=== PATIENT | female | born 1955 | race Caucasian/White ===

== ENCOUNTER 2020-01-21 08:38 | Emergency (ER) | payer MEDICARE, OTHER ==
[~2020-01-21] VITALS: Ht 167.6 cm; Wt 111.1 kg
--- OUTSIDE RECORDS SUMMARY | 2020-01-21 08:40 | XMS REPORT | Continuity of Care Document ---
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 Active 12/27/2013 [facility] Peripheral Neuropathy Active 12/27/2013 [facility] Lower Back Pain Chronic Active 12/27/2013 [facility] Esophageal Reflux Active 12/27/2013 [facility] Medications Medication Details Route Status Patient Instructions Ordering Provider Order Date Source Vicodin 5-300 MG Oral Tablet ; Start Date: 12/11/2013 (Active) Active 12/11/2013 [facility] Cyclobenzaprine HCl 5 MG Oral Tablet ; Start Date: 12/11/2013; End Date: (Active) Active 12/11/2013 [facility] Diazepam 5 MG Oral Tablet ; St art Date: 12/11/2013 (Active) Active 12/11/2013 [facility] Atenolol 50 MG Oral Tablet ; S tart Date: 11/27/2013; End Date: 06/17/2014 (Active) Active 11/27/2013 [facility] Irbesartan-Hydrochlorothiazide 150-12.5 MG Oral Tablet ; Start Date: 09/29/2013; End Date: 02/17/2014 (Active) Active 09/29/2013 [facility] Accu-Chek FastClix Lancets Miscellaneous ; Start Date: 09/19/2013; End Date: (Active) Active 09/19/2013 [facility] Accu-Chezainab SmartView In Vitro Strip ; Start Date: 09/19/2013; End Date: (Active) Active 09/19/2013 [facility] Sissy Wagnerirma Lancets Fine Miscellaneous ; Start Date: 09/19/2013 (Active) Active 09/19/2013 [facility] Sissy Ultra Blue In Vitro Strip ; Start Date: 09/19/2013 (Active) Active 09/19/2013 [facility] AmLODIPine Besylate 10 MG Oral Tablet ; Start Date: 08/29/2013; End Date: 06/17/2014 (Active) Active 08/29/2013 [facility] BuPROPion HCl ER (XL) 300 MG Oral Tablet Extended Release 24 Hour ; Start Date: 08/29/2013 (Active) Active 08/29/2013 [facility] Glimepiride 1 MG Oral Tablet ; Start Date: 08/29/2013; End Date: 06/17/2014 (Active) Active 08/29/2013 [facility] BuPROPion HCl ER (XL) 300 MG Oral Tablet Extended Release 24 Hour ; Start Date: 08/29/2013; End Date: 05/30 (Active) Active 08/29/2013 [facility] Januvia 100 MG Oral Tablet ; S tart Date: 06/24/2013; End Date: 06/17/2014 (Active) Active 06/24/2013 [facility] Penicillin V Potassium 500 MG Oral Tablet ; Start Date: 05/19/2013; End Date: 05/29/2013 (Active) Active 05/19/2013 [facility] Atorvastatin Calcium 20 MG Oral Tablet ; Start Date: ; End Date: 06/17/2014 (Active) Active [facility] MetFORMIN HCl 500 MG Oral Tablet ; Start Date: ; End Date: 06/17/2014 (Active) Active [facility] Omeprazole 20 MG Oral Tablet Delayed Release ; Start Date: ; End Date: 06/17/2014 (Active) Active [facility] AmLODIPine Besylate 10 MG Oral Tablet (Active) Active [facility] Januvia 100 MG Oral Tablet (A ctive) Active [facility] Losartan Potassium-HCTZ 100-12.5 MG Oral Tablet (Active) Active [facility] Atenolol 50 MG Oral Tablet (A ctive) Active [facility] Lipitor 20 MG Oral Tablet (Ac tive) Active [facility] BuPROPion HCl ER (XL) 300 MG Oral Tablet Extended Release 24 Hour (Active) A ctive [facility] MetFORMIN HCl 500 MG Oral Tablet (Active) Active [facility] Omeprazole 20 MG Oral Tablet Delayed Release (Active) Active [facility] Atorvastatin Calcium 20 MG Oral Tablet (Active) Active [facility] Irbesartan-Hydrochlorothiazide 150-12.5 MG Oral Tablet (Active) Active [facility] Aspirin 81 MG Oral Tablet (Ac tive) Active [facility] Ibuprofen 200 MG Oral Tablet (Active) Active [facility] Allergies, Adverse Reactions, Alerts Substance Category Reaction Severity Reaction type Status Date Reported Comments Source Lexapro TABS drug allergy drug allergy Active [facility] Serzone TABS drug allergy drug allergy Active [facility] Immunizations No Data Provided for This Section Results No Data Provided for This Section Pathology Reports No Data Provided for This Section Diagnostic Reports No Data Provided for This Section Consultation Notes No Data Provided for This Section Discharge Summaries No Data Provided for This Section History and Physicals No Data Provided for This Section Vital Signs No Data Provided for This Section Encounters Location Location Details Encounter Type Encounter Number Reason For Visit Attending Provider ADM Date DC Date Status Source AUDIT [id number] 05/18/2013 05/18/2013 [facility] MILLIE Provi erich: DIMITRI LOJA, Status: Pen, Time: 12:45 PM [id number] 05/19/20 13 05/18/2013 [facility] AUDIT [id number] 05/19/2013 05/19/2013 [facility] AUDIT [id number] 06/24/2013 06/24/2013 [facility] AUDIT [id number] 08/29/2013 08/29/2013 [facility] ECL Provi erich: MONALISA BURGESS, Status: Pen, Time: 9:15 AM [id number] 08/31/19 14 08/29/2013 [facility] AUDIT [id number] 09/14/2013 09/14/2013 [facility] AUDIT [id number] 09/19/2013 09/19/2013 [facility] AUDIT [id number] 11/24/2013 11/24/2013 [facility] AUDIT [id number] 11/29/2013 11/29/2013 [facility] MILLIE Provi erich: MONALISA BURGESS, Status: Pen, Time: 8:00 AM [id number] 12/06/19 14 11/24/2013 [facility] MILLIE Provi erich: DIMITRI LOJA, Status: Pen, Time: 8:30 AM [id number] 12/20/19 14 11/29/2013 [facility] AUDIT [id number] 12/19/2013 12/19/2013 [facility] AUDIT [id number] 12/27/2013 12/27/2013 [facility] Procedures No Data Provided for This Section Assessment and Plan No Data Provided for This Section Plan of Care Plan of Care Date Source [QLH] TSH, 3RD GENERATION W/REFLEX TO FT 4 12/19/2013 Routine[QH] LIPID PANEL WITH REFLEX TO DIRECT LDL 12/19/2013 Routine[Q] COMPREHENSIVE METABOLIC PANEL W/eGFR (REFL) 12/19/2013 Routine[QLH] CBC (INCLUDES DIFF/PLT) 12/19/2013 Routine[QLH] MICROALBUMIN, RANDOM URINE (W/CREATININE) 12/19/2013 Routine[QLH] URINALYSIS, COMPLETE 12/19/2013 Routine 12/19/2013 [facility] Social History Social History Date Source Marital History - (Acti ve) Former Smoker (V15.82); (Active) Never Drank Alcohol (Active) 12/27/2013 [facility] Family History Value Date S ource Maternal history of Osteoporosis (V17.81 ); (Active) Paternal history of Pancreatic Cancer Susceptibility (Active) 12/27/2013 [facility] Maternal history of Osteoporosis (V17.81 ); (Active) Paternal history of Pancreatic Cancer Susceptibility (Active) 12/19/2013 [facility] Maternal history of Osteoporosis (V17.81 ); (Active) Paternal history of Pancreatic Cancer Susceptibility (Active) 11/29/2013 [facility] Maternal history of Osteoporosis (V17.81 ); (Active) Paternal history of Pancreatic Cancer Susceptibility (Active) 11/24/2013 [facility] Maternal history of Osteoporosis (V17.81 ); (Active) Paternal history of Pancreatic Cancer Susceptibility (Active) 09/19/2013 [facility] Maternal history of Osteoporosis (V17.81 ); (Active) Paternal history of Pancreatic Cancer Susceptibility (Active) 09/14/2013 [facility] Maternal history of Osteoporosis (V17.81 ); (Active) Paternal history of Pancreatic Cancer Susceptibility (Active) 08/29/2013 [facility] Maternal history of Osteoporosis (V17.81 ); (Active) Paternal history of Pancreatic Cancer Susceptibility (Active) 06/24/2013 [facility] Maternal history of Osteoporosis (V17.81 ); (Active) Paternal history of Pancreatic Cancer Susceptibility (Active) 05/19/2013 [facility] Maternal history of Osteoporosis (V17.81 ); (Active) Paternal history of Pancreatic Cancer Susceptibility (Active) 05/18/2013 [facility] Advance Directives Order Name Results Value Date Source Advance Directives Advance Dir ectives No Advance Directives available. 12/27/2013 [facility] Advance Directives Advance Dir ectives No Advance Directives available. 12/19/2013 [facility] Advance Directives Advance Dir ectives No Advance Directives available. 11/29/2013 [facility] Advance Directives Advance Dir ectives No Advance Directives available. 11/24/2013 [facility] Advance Directives Advance Dir ectives No Advance Directives available. 09/19/2013 [facility] Advance Directives Advance Dir ectives No Advance Directives available. 09/14/2013 [facility] Advance Directives Advance Dir ectives No Advance Directives available. 08/29/2013 [facility] Advance Directives Advance Dir ectives No Advance Directives available. 06/24/2013 [facility] Advance Directives Advance Dir ectives No Advance Directives available. 05/19/2013 [facility] Advance Directives Advance Dir ectives No Advance Directives available. 05/18/2013 [facility] Functional Status No Data Provided for This Section
--- OUTSIDE RECORDS SUMMARY | 2020-01-21 08:40 | XMS REPORT ---
Author Author ERIC BURGESS Organization Unknown Address Unknown Phone Care Team Providers Care Program Manager Name Role Phone ADITYA MONALISA PP Unavailable Reason for Referral No Reason for Referral was given. History of Present Illness No HPI available. Problems * Normal Routine History And Physical Adult (V70.0); (Active) * Irritable Bowel Syndrome (564.1); (Active) * Hypertension (401.9); (Active) * Diabetes Mellitus (250.00); (Active) * Hyperlipidemia (272.4); (Active) * Streptococcal Sore Throat (034.0); (Active) Medication * AmLODIPine Besylate 10 MG Oral Tablet; ONCE DAILY (Active) * Januvia 100 MG Oral Tablet; one daily (Active) * Atorvastatin Calcium 20 MG Oral Tablet; TAKE 1 TABLET DAILY. (Active) * BuPROPion HCl ER (XL) 300 MG Oral Tablet Extended Release 24 Hour; TAKE 1 TABLET DAILY DIRECTED. (Active) * Atenolol 50 MG Oral Tablet; 1/2 tab at HS (Active) * Omeprazole 20 MG Oral Tablet Delayed Release; TAKE 1 TABLET TWICE DAILY (Active) * Irbesartan-Hydrochlorothiazide 150-12.5 MG Oral Tablet; TAKE 1 TABLET DAILY. (Active) * Aspirin 81 MG Oral Tablet; TAKE 1 TABLET DAILY. (Active) * Ibuprofen 200 MG Oral Tablet; TAKE 1 TABLET 3-4 TIMES DAILY NEEDED. (Active) * MetFORMIN HCl 500 MG Oral Tablet; 2 tablets bid (Active) * Januvia 100 MG Oral Tablet; TAKE 1 TABLET DAILY; Start Date: 06/24/2013; End Date: (Active) Allergies and Adverse Reactions * Lexapro TABS (Active) * Serzone TABS (Active) Past Medical History * History of Hiatal Hernia (553.3); (Resolved) * History of Esophageal Reflux (530.81); (Resolved) * History of Hypertension (401.9); (Resolved) * History of Hyperlipidemia (272.4); (Resolved) * History of Diabetes Mellitus (250.00); (Resolved) Procedures Procedure Procedure Date Date Completed Status Cholecystectomy - - Resolved Back Surgery - - Resolved Family History * Maternal history of Osteoporosis (V17.81); (Active) * Paternal history of Pancreatic Cancer Susceptibility (Active) Social History * Marital History - (Active) * Former Smoker (V15.82); (Active) * Never Drank Alcohol (Active) Advance Directives * No Advance Directives available. Encounters * AUDIT 06/24/2013
--- OUTSIDE RECORDS SUMMARY | 2020-01-21 08:40 | XMS REPORT ---
Author Author ERIC COURTNEY Organization Unknown Address Unknown Phone Care Team Providers Care Principal Software Engineer Name Role Phone SHERWIN SHANTEL PP Unavailable Reason for Referral No Reason for Referral was given. History of Present Illness No HPI available. 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 (Active) * BuPROPion HCl ER (XL) 300 MG Oral Tablet Extended Release 24 Hour; TAKE 1 TABLET DAILY; Start Date: 08/29/2013 (Active) * Atenolol 50 MG Oral Tablet; 1 TAB IN THE MORNING AND 1/2 TAB AT NIGHT (Active) * Aspirin 81 MG Oral Tablet; TAKE 1 TABLET DAILY. (Active) * Ibuprofen 200 MG Oral Tablet; TAKE 1 TABLET 3-4 TIMES DAILY NEEDED. (Active) * Omeprazole 20 MG Oral Tablet Delayed Release; TAKE 1 TABLET TWICE DAILY (Active) * MetFORMIN HCl 500 MG Oral Tablet; 2 tablets bid (Active) * Januvia 100 MG Oral Tablet; TAKE 1 TABLET DAILY; Start Date: 06/24/2013; End Date: (Active) * Irbesartan-Hydrochlorothiazide 150-12.5 MG Oral Tablet; TAKE 1 TABLET DAILY. (Active) * Glimepiride 1 MG Oral Tablet; TAKE 1 TABLET AT BEDTIME; Start Date: 08/29/2013 (Active) Allergies and Adverse Reactions * Lexapro [...] No Advance Directives available. Encounters * AUDIT 09/19/2013 * ECL, Provider: MONALISA BURGESS, Status: Jeff, Time: 8:00 AM 12/05/2013
--- OUTSIDE RECORDS SUMMARY | 2020-01-21 08:40 | XMS REPORT ---
Author Author ERIC Zheng Organization Unknown Address Unknown Phone Care Team Providers Care Society Reporter Name Role Phone Sharon Zheng PP [phone] Unavailable Reason for Referral No Reason for Referral was given. History of Present Illness No HPI available. 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 (293.83); (Active) * Peripheral Neuropathy (356.9); (Active) * Lower Back Pain Chronic (724.2); (Active) * Diabetes Mellitus (250.00); (Active) * Esophageal Reflux (530.81); (Active) * Depression (311); (Active) * Hyperlipidemia (272.4); (Active) * Hypertension (401.9); (Active) Medication * AmLODIPine Besylate 10 MG Oral Tablet; TAKE 1 TABLET DAILY DIRECTED; Start Date: 08/29/2013; End Date: 06/17/2014 (Active) * Atenolol 50 MG Oral Tablet; TAKE 1 TABLET IN THE MORNING AND 1/2 TABLET AT BEDTIME; Start Date: 11/27/2013; End Date: 06/17/2014 (Active) * Atorvastatin Calcium 20 MG Oral Tablet; TAKE 1 TABLET DAILY.; Start Date: ; End Date: 06/17/2014 (Active) * BuPROPion HCl ER (XL) 300 MG Oral Tablet Extended Release 24 Hour; TAKE 1 TABLET DAILY; Start Date: 08/29/2013; End Date: 06/17/2014 (Active) * Aspirin 81 MG Oral Tablet; TAKE 1 TABLET DAILY. (Active) * Ibuprofen 200 MG Oral Tablet; TAKE 1 TABLET 3-4 TIMES DAILY NEEDED. (Active) * Januvia 100 MG Oral Tablet; TAKE 1 TABLET DAILY; Start Date: 06/24/2013; End Date: 06/17/2014 (Active) * MetFORMIN HCl 500 MG Oral Tablet; TAKE 2 TABLET TWICE DAILY; Start Date: ; End Date: 06/17/2014 (Active) * Omeprazole 20 MG Oral Tablet Delayed Release; TAKE 1 TABLET TWICE DAILY; Start Date: ; End Date: 06/17/2014 (Active) * Irbesartan-Hydrochlorothiazide 150-12.5 MG Oral Tablet; TAKE 1 TABLET BY MOUTH DAILY; Start Date: 09/29/2013; End Date: 02/17/2014 (Active) * Glimepiride 1 MG Oral Tablet; TAKE 1 TABLET AT BEDTIME; Start Date: 08/29/2013; End Date: 06/17/2014 (Active) * Vicodin 5-300 MG Oral Tablet; TAKE 1 TO 2 TABLETS EVERY 4 TO 6 HOURS NEEDED FOR PAIN.; Start Date: 12/11/2013 (Active) * Cyclobenzaprine HCl 5 MG Oral Tablet; TAKE 1 TO 2 TABLETS BY MOUTH AT BEDTIME NEEDED; Start Date: 12/11/2013; End Date: (Active) * Diazepam 5 MG Oral Tablet; TAKE 1 TABLET EVERY 8 HOURS NEEDED FOR MUSCLE SPASM.; Start Date: 12/11/2013 (Active) * OneTouch Delica Lancets Fine Miscellaneous; Check BG 2x a day; Start Date: 09/19/2013; End Date: (Active) * OneTouch Ultra Blue In Vitro Strip; Check BG 2x a day; Start Date: 09/19/2013; End Date: (Active) Allergies and Adverse Reactions [...] (V15.82); (Active) * Never Drank Alcohol (Active) Treatment Plan * [QLH] TSH, 3RD GENERATION W/REFLEX TO FT4 12/19/2013 Routine * [QH] LIPID PANEL WITH REFLEX TO DIRECT LDL 12/19/2013 Routine * [Q] COMPREHENSIVE METABOLIC PANEL W/eGFR (REFL) 12/19/2013 Routine * [QLH] CBC (INCLUDES DIFF/PLT) 12/19/2013 Routine * [QLH] MICROALBUMIN, RANDOM URINE (W/CREATININE) 12/19/2013 Routine * [QLH] URINALYSIS, COMPLETE 12/19/2013 Routine Advance Directives * No Advance Directives available. Encounters * AUDIT 12/19/2013
--- OUTSIDE RECORDS SUMMARY | 2020-01-21 08:40 | XMS REPORT ---
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 Encounters * AUDIT 09/14/2013
--- OUTSIDE RECORDS SUMMARY | 2020-01-21 08:40 | XMS REPORT ---
Author Author ERIC Kothari Organization Unknown Address Unknown Phone Care Team Providers Care Hockey Instructor Name Role Phone Agnieszka Kothari PP Unavailable Reason for Referral No Reason for Referral was given. History of Present Illness No HPI available. 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 (Active) * Ibuprofen 200 MG Oral Tablet; TAKE 1 TABLET 3-4 TIMES DAILY NEEDED. (Active) * Omeprazole 20 MG Oral Tablet Delayed Release; TAKE 1 TABLET TWICE DAILY (Active) * Januvia 100 MG Oral Tablet; TAKE 1 TABLET DAILY; Start Date: 06/24/2013; End Date: (Active) * Irbesartan-Hydrochlorothiazide 150-12.5 MG Oral Tablet; TAKE 1 TABLET BY MOUTH DAILY; Start Date: 09/29/2013 (Active) * MetFORMIN HCl 500 MG Oral Tablet; TAKE 2 TABLET TWICE DAILY; Start Date: ; End Date: (Active) * Accu-Chek FastClix Lancets Miscellaneous; USE DIRECTED for blood sugar monitoring.; Start Date: 09/19/2013; End Date: (Active) * Accu-Chek SmartView In Vitro Strip; USE DIRECTED. Check sugars twice daily at various times.; Start Date: 09/19/2013; End Date: (Active) * Glimepiride 1 MG Oral Tablet; TAKE 1 TABLET AT BEDTIME; Start Date: 08/29/2013; End Date: (Active) Allergies and Adverse Reactions [...] No Advance Directives available. Encounters * AUDIT 11/29/2013 * ECL, Provider: DIMITRI LOJA, Status: Jeff, Time: 8:30 AM 12/19/2013
--- OUTSIDE RECORDS SUMMARY | 2020-01-21 08:40 | XMS REPORT ---
Author Author ERIC Ham Organization Unknown Address Unknown Phone Care Team Providers Care Whip Sawyer Name Role Phone Esthela Ham PP Unavailable Reason for Referral No Reason for Referral was given. History of Present Illness No HPI available. 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 Encounters * AUDIT 12/27/2013
--- OUTSIDE RECORDS SUMMARY | 2020-01-21 08:40 | XMS REPORT ---
Author Author ERIC Kothari Organization Unknown Address Unknown Phone Care Team Providers Care Flood Control Engineer Name Role Phone Agnieszka Kothari PP Unavailable Reason for Referral No Reason for Referral was given. History of Present Illness No HPI available. Problems * Normal Routine History And Physical Adult (V70.0); (Active) * Irritable Bowel Syndrome (564.1); (Active) * Hypertension (401.9); (Active) * Diabetes Mellitus (250.00); (Active) * Hyperlipidemia (272.4); (Active) * Streptococcal Sore Throat (034.0); (Active) * Depression (311); (Active) Medication * AmLODIPine Besylate 10 MG Oral Tablet; TAKE 1 TABLET DAILY DIRECTED; Start Date: 08/29/2013; End Date: (Active) * Januvia 100 MG Oral Tablet; one daily (Active) * Atorvastatin Calcium 20 MG Oral Tablet; TAKE 1 TABLET DAILY. (Active) * Atenolol 50 MG Oral Tablet; 1/2 tab at HS (Active) * BuPROPion HCl ER (XL) 300 MG Oral Tablet Extended Release 24 Hour; TAKE 1 TABLET DAILY; Start Date: 08/29/2013; End Date: (Active) * Omeprazole 20 MG Oral Tablet [...] Start Date: 06/24/2013; End Date: (Active) * Glimepiride 1 MG [...] No Advance Directives available. Encounters * AUDIT 08/29/2013 * ECL, Provider: MONALISA BURGESS, Status: Jeff, Time: 9:15 AM 08/31/2013
--- OUTSIDE RECORDS SUMMARY | 2020-01-21 08:40 | XMS REPORT ---
Author Author [facility] Organization [facility] Address [address] [place] [address] Phone Unavailable Care Team Providers Care Business Management Consultant Name Role Phone Unavailable Unavailable Payers Payer Name Policy Type Policy Number Effective Date Expiration Date S ource Problems Condition Name Condition Details Condition Category Status Onset Date Resolution Date Last Treatment Date Treating Clinician Comments Source Irritable Bowel Syndrome Irri table Bowel Syndrome Active 12/27/2013 [facility] Problem Active 2013-12-27 19:18: 15 [facility] Hypertension Hype rtension Active 12/27/2013 [facility] Problem Active 2013-12-27 19:18:15 [facility] Diabetes Mellitus Diab etes Mellitus Active 12/27/2013 [facility] Problem Active 2013-12-27 19:18:15 [facility] Hyperlipidemia Hype rlipidemia Active 12/27/2013 [facility] Problem Active 2013-12-27 19:18:15 [facility] Streptococcal Sore Throat Stre ptococcal Sore Throat Active 11/29/2013 [facility] Problem Active 2013-11-29 19:36: 32 [facility] Depression Depr ession Active 12/27/2013 [facility] Problem Active 2013-12-27 19:18:15 [facility] 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) Etiology Active 12/27/2013 [facility] Problem Active 2013-12-27 19:18:15 [facility] Peripheral Neuropathy Fatmata pheral Neuropathy Active 12/27/2013 [facility] Problem Active 2013-12-27 19:18:15 [facility] Lower Back Pain Chronic Lowe r Back Pain Chronic Active 12/27/2013 [facility] Problem Active 2013-12-27 19:18: 15 [facility] Esophageal Reflux Esop hageal Reflux Active 12/27/2013 [facility] Problem Active 2013-12-27 19:18:15 [facility] Allergies, Adverse Reactions, Alerts Allergy Name Allergy Type Status Severity Reaction(s) Onset Date Inacti ve Date Treating Clinician Comments Source No Known Allergies DA Active U 2018-10-13 00:00:00 [facility] No Known Contrast Allergies DA Active U 2006-02-17 00:00: 00 [facility] No Known Drug Allergies DA Active U 2006-02-17 00:00:00 [facility] No Known Food Allergies DA Active U 2006-02-17 00:00:00 [facility] No Known Other Allergies DA Active U 2006-02-17 00:00:00 [facility] No Known Drug Intolerances DA Active U 2003-07-18 00:00:0 0 [facility] Lexapro TABS Lexapro TABS Active [facility] Serzone TABS Serzone TABS Active [facility] Social History Social Habit Start Date Stop Date Quantity Comments Source Social History 2013-12-27 19:18:15 2013-12-27 19:18:15 [facility] Medications Ordered Medication Name Filled Medication Name Start Date Stop Da te Current Medication? Ordering Clinician Indication Dosage Frequency Signature (SIG) Comments Components Source Aspirin 81 MG Oral Tablet 2013-12-27 19:18:15 Yes (Active) [facility] Ibuprofen 200 MG Oral Tablet 2013-12-27 19:18:15 Yes (Active) [facility] Vicodin 5-300 MG Oral Tablet 2013-12-11 05:00:00 Yes ; Start Date: 12/11/2013 (Active) [facility] Cyclobenzaprine HCl 5 MG Oral Tablet 2013-12-11 05:00:00 Ye s ; Start Date: 12/11/2013; End Date: (Active) [facility] Diazepam 5 MG Oral Tablet 2013-12-11 05:00:00 Yes ; Start Date: 12/11/2013 (Active) [facility] Omeprazole 20 MG Oral Tablet Delayed Release 2013-11-29 19:36:32 Yes (Active) [facility] Atenolol 50 MG Oral Tablet 2013-11-27 05:00:00 Yes ; Start Date: 11/27/2013; End Date: 06/17/2014 (Active) [facility] Atenolol 50 MG Oral Tablet 2013-11-24 16:16:48 Yes (Active) [facility] MetFORMIN HCl 500 MG Oral Tablet 2013-11-24 16:16:48 Yes (Active) [facility] Atorvastatin Calcium 20 MG Oral Tablet 2013-11-24 16:16:48 Yes (Active) [facility] Irbesartan-Hydrochlorothiazide 150-12.5 MG Oral Tablet 2013-09-29 06:00:00 Yes ; Start Date: 09/29/2013; End Date: 01/29 (Active) [facility] Irbesartan-Hydrochlorothiazide 150-12.5 MG Oral Tablet 2013-09-19 17:33:46 Yes (Active) [facility] Accu-Chek FastClix Lancets Miscellaneous 2013-09-19 06:00:00 Yes ; Start Date: 09/19/2013; End Date: (Active) [facility] Accu-Chek SmartView In Vitro Strip 2013-09-19 06:00:00 Yes ; Start Date: 09/19/2013; End Date: (Active) [facility] Sissy Harley Fine Miscellaneous 2013-09-19 06:00:00 Yes ; Start Date: 09/19/2013 (Active) [facility] OneTonola Ultra Blue In Vitro Strip 2013-09-19 06:00:00 Yes ; Start Date: 09/19/2013 (Active) [facility] Januvia 100 MG Oral Tablet 2013-08-29 16:47:55 Yes (Active) [facility] AmLODIPine Besylate 10 MG Oral Tablet 2013-08-29 06:00:00 Y es ; Start Date: 08/29/2013; End Date: 06/17/2014 (Active) [facility] BuPROPion HCl ER (XL) 300 MG Oral Tablet Extended Release 24 Hour 2013-08-29 06:00:00 Yes ; Start Date: 08/29/2013 (Act vandana) [facility] Glimepiride 1 MG Oral Tablet 2013-08-29 06:00:00 Yes ; Start Date: 08/29/2013; End Date: 06/17/2014 (Active) [facility] BuPROPion HCl ER (XL) 300 MG Oral Tablet Extended Release 24 Hour 2013-08-29 06:00:00 Yes ; Start Date: 3; End Date: 06/17/2014 (Active) [facility] AmLODIPine Besylate 10 MG Oral Tablet 2013-06-24 14:15:23 Y es (Active) [facility] BuPROPion HCl ER (XL) 300 MG Oral Tablet Extended Release 24 Hour 2013-06-24 14:15:23 Yes (Active) [facility] Januvia 100 MG Oral Tablet 2013-06-24 05:00:00 Yes ; Start Date: 06/24/2013; End Date: 06/17/2014 (Active) [facility] Penicillin V Potassium 500 MG Oral Tablet 2013-05-19 05:00:00 Yes ; Start Date: 05/19/2013; End Date: 05/29/2013 (Active) [facility] Losartan Potassium-HCTZ 100-12.5 MG Oral Tablet 2013-05-18 21:22 :00 Yes (Active) [facility] Lipitor 20 MG Oral Tablet 2013-05-18 21:22:00 Yes (Active) [facility] Atorvastatin Calcium 20 MG Oral Tablet Yes ; Start Date: ; End Date: 06/17/2014 (Active) [facility] MetFORMIN HCl 500 MG Oral Tablet Yes ; Start Date: ; End Date: 06/17/2014 (Active) [facility] Omeprazole 20 MG Oral Tablet Delayed Release Yes ; Start Date: ; End Date: 06/17/2014 (Active) [facility] Procedures This patient has no known procedures. Plan of Care Planned Activity Planned Date Details Comments Source Future Scheduled Test Plan of Care [code = 05404-1] [facility] Encounters Start Date/Time End Date/Time Encounter Type Admission Type Attendi ng Clinicians Care Facility Care Department Encounter ID Source 2013-12-27 14:18:15 2013-12-27 19:18:15 AUDIT [facility] [id number] [facility] 2013-12-27 14:18:15 2013-12-27 14:18:15 Outpatient [facility] [id number] 2013-12-19 10:58:52 2013-12-19 15:58:52 [facility] [id number] [facility] 2013-12-19 10:58:52 2013-12-19 10:58:52 Outpatient [facility] [id number] 2013-12-19 08:30:00 2013-11-29 19:36:32 ECL, Provider: José Miguel LOJA, Status: Pen, Time: 8:30 AM [facility] [id number] [facility] 2013-11-29 14:36:32 2013-11-29 19:36:32 [facility] [id number] [facility] 2013-11-29 14:36:32 2013-11-29 14:36:32 Outpatient [facility] [id number] 2013-12-05 08:00:00 2013-11-24 16:16:48 ECL, Provider: MONALISA HAGEN, Status: Pen, Time: 8:00 AM [facility] [id number] [facility] 2013-11-24 11:16:48 2013-11-24 16:16:48 AUDIT [facility] [id number] [facility] 2013-11-24 11:16:48 2013-11-24 11:16:48 Outpatient [facility] [id number] 2013-09-19 11:33:47 2013-09-19 17:33:46 [facility]IT [facility] [id number] [facility] 2013-09-19 11:33:47 2013-09-19 11:33:46 Outpatient [facility] [id number] 2013-09-14 16:47:56 2013-09-14 22:47:56 AUDIT [facility] [id number] [facility] 2013-09-14 16:47:56 2013-09-14 16:47:56 Outpatient [facility] [id number] 2013-08-31 09:15:00 2013-08-29 16:47:55 ECL, Provider: MONALISA HAGEN, Status: Pen, Time: 9:15 AM [facility] [id number] [facility] 2013-08-29 10:47:56 2013-08-29 16:47:55 AUDIT [facility] [id number] [facility] 2013-08-29 10:47:56 2013-08-29 10:47:55 Outpatient [facility] [id number] 2013-06-24 09:15:23 2013-06-24 14:15:23 [facility] [id number] [facility] 2013-06-24 09:15:23 2013-06-24 09:15:23 Outpatient [facility] [id number] 2013-05-19 14:02:42 2013-05-19 19:02:41 AUDIT [facility] [id number] [facility] 2013-05-19 14:02:42 2013-05-19 14:02:41 Outpatient [facility] [id number] 2013-05-19 12:45:00 2013-05-18 21:22:00 ECL, Provider: José Miguel LOJA, Status: Pen, Time: 12:45 PM [facility] [id number] [facility] 2013-05-18 16:22:00 2013-05-18 21:22:00 AUDIT [facility] [id number] [facility] 2013-05-18 16:22:00 2013-05-18 16:22:00 Outpatient [facility] [id number] Results Test Description Test Time Test Comments Results Result Comments Source BASIC METABOLIC PANEL 2018-10-13 20:18:00 Test Item SODIUM (test code = NA) 137 mmol/L 136-145 N POTASSIUM (test code = K) 4.2 mmol/L 3.5-5.1 N CHLORIDE (test code = CL) 104.0 mmol/L 98-107 N CARBON DIOXIDE (test code = CO2) 22.0 mmol/L 21-32 N ANION GAP (test code = GAP) 15.2 10-20 N GLUCOSE (test code = GLU) 87 mg/dL 74-106 N BLOOD UREA NITROGEN (test code = BUN) 12 mg/dL 7-18 N GLOMERULAR FILTRATION RATE (test code = GFR) > 60 mL/min >=60 Estimated GFR by using Modified MDRD formula.Chronic kidney disease is defined as either kidney damageor GFR <60 mL/min/1.73 m2 for >3 months. CREATININE (test code = CREAT) 0.80 mg/dL 0.55-1.02 N Note change in reference range due to change in reagent. BUN/CREATININE RATIO (test code = BUN/CREA) 15.6 10-20 N CALCIUM (test code = CA) 8.2 mg/dL 8.5-10.1 L [id number] 20:18:00* Test Item Value Reference Range Interpretation Comments TROPONIN-I (test code = TROPI) <0.015 ng/mL 0-0.045 N HEPATIC FUNCTION [id number] 20:09:00* Test Item Value Reference Range Interpretation Comments TOTAL PROTEIN (test code = PROT) 7.5 gram/dL 6.4-8.2 N ALBUMIN (test code = ALB) 3.1 g/dL 3.4-5.0 L GLOBULIN (test code = GLOB) 4.4 gram/dL 2.7-4.2 H ALBUMIN/GLOBULIN RATIO (test code = A/G) 0.7 0.75-1.50 L BILIRUBIN TOTAL (test code = BILT) 0.50 mg/dL 0.0-1.0 N BILIRUBIN DIRECT (test code = BILD) < 0.05 mg/dL 0.0-0.20 N SGOT/AST (test code = AST) 51 IUnit/L 15-37 H SGPT/ALT (test code = ALT) 37 IUnit/L 12-78 N ALKALINE PHOSPHATASE TOTAL (test code = ALKP) 82 IUnit/L 45-117 N Note change in reference range due to change in reagent. [id number] 20:09:00* Test Item Value Reference Range Interpretation Comments LIPASE (test code = LIP) 37 U/L 73.0-393.0 L - XR CHEST 1 [id number] 20:04:00 FAX: Ryan Liu MD [phone] [place]: St: REG Name: ERIC POWELL [facility] : [birth year] Age/S: 63/F [address] [facility] Unit #: [id number] Loc: [place] [address] Phys: Ryan Liu MD Acct: [id number] Dis Date: Status: REG ER PHONE #: [phone] Exam Date: 10/13/2018 1950 FAX #: [phone] Reason: cough EXAMS: CPT CODE: [id number] XR CHEST 1 V [id number] REASON FOR EXAM: cough EXAM ORDER DATE: 10/13/2018 7:30 PM Ordering MMasood: Ryan Liu MD PROCEDURE: - XR CHEST 1 V COMPARISON: FINDINGS: Portable AP frontal view of the chest obtained at 7:51 PM shows small calcified granuloma in the left base. There is no evidence of consolidation. There is no evidence of effusion. The heart size is within normal limits. Pulmonary vasculatures are unremarkable. IMPRESSION: No active disease. at 2003 Reported and signed by: Ronal Goldberg M.D. CC: Ryan Liu MD Technologist: DELVIS Plasencia [facility] Date/Time/By: 10/13/2018 (2003) : By: LeobardoL Orig Print D/T: S: 10/13/2018 (2006) PAGE 1 Aidee d Report BASIC METABOLIC [id number] 19:57:00 * Test Item Value Reference Range Interpretation Comments SODIUM (test code = NA) 137 mmol/L 136-145 N POTASSIUM (test code = K) 4.2 mmol/L 3.5-5.1 N CHLORIDE (test code = CL) 104.0 mmol/L 98-107 N CARBON DIOXIDE (test code = CO2) mmol/L 21-32 ANION GAP (test code = GAP) 10-20 GLUCOSE (test code = GLU) mg/dL 74-106 BLOOD UREA NITROGEN (test code = BUN) mg/dL 7-18 GLOMERULAR FILTRATION RATE (test code = GFR) mL/min >=60 CREATININE (test code = CREAT) mg/dL 0.55-1.02 BUN/CREATININE RATIO (test code = BUN/CREA) 10-20 CALCIUM (test code = CA) mg/dL 8.5-10.1 [id number] 19:57:00* Test Item Value Reference Range Interpretation Comments TROPONIN-I (test code = TROPI) ng/mL 0-0.045 URINALYSIS [id number] 19:53:00* Test Item Value Reference Range Interpretation Comments UA COLOR (test code = COLU) YELLOW YELLOW UA APPEARANCE (test code = APPU) SLIGHTLY CLOUDY CLEAR A UA GLUCOSE DIPSTICK (test code = DGLUU) NEGATIVE mg/dL NEGATIVE UA BILIRUBIN DIPSTICK (test code = BILU) NEGATIVE mg/dL NEGATIVE UA KETONE DIPSTICK (test code = KETU) Negative mg/dL NEGATIVE UA SPECIFIC GRAVITY (test code = SGU) 1.013 1.001-1.035 UA BLOOD DIPSTICK (test code = NATALY) 2+ (Moderate) NEGATIVE A UA PH DIPSTICK (test code = WILLIAM) 6.0 5.0-8.0 UA PROTEIN DIPSTICK (test code = PROU) Negative mg/dL NEGATIVE UA UROBILINIOGEN DIPSTICK (test code = URO) NEGATIVE mg/dL NEGATIVE UA NITRITE DIPSTICK (test code = RAMON) NEGATIVE NEGATIVE UA LEUKOCYTE ESTERASE W REFLEX (test code = LEUUR) 3+ NEG ATIVE A UA WBC (test code = WBCU) >50 #/HPF 0-5 A UA RBC (test code = RBCU) 6-10 #/HPF 0-5 A UA WBC CLUMPS (test code = WBCUCL) 3-6 /HPF NONE A UA EPITHELIAL CELLS (test code = EPIU) FEW per HPF FEW UA BACTERIA (test code = BACU) MODERATE #/HPF NONE A UA MUCUS (test code = MUCU) FEW #/LPF FEW Urine Source? Clean CatchCBC W/O [id number] 19:43:00* Test Item Value Reference Range Interpretation Comments WHITE BLOOD CELL (test code = WBC) K/mm3 4.5-12.5 RED BLOOD CELL (test code = RBC) mill/mm3 3.7-5.2 HEMOGLOBIN (test code = HGB) 13.3 gram/dL 11.5-15.5 N HEMATOCRIT (test code = HCT) 41.4 % 36.0-46.0 N MEAN CELL VOLUME (test code = MCV) fL 80-98 MEAN CELL HGB (test code = MCH) picogram 27.0-33.0 MEAN CELL HGB CONCETRATION (test code = MCHC) gram/dL 33.0-36. 0 RED CELL DISTRIBUTION WIDTH (test code = RDW) % 11.6-16. 2 PLATELET COUNT (test code = PLT) K/mm3 150-450 MEAN PLATELET VOLUME (test code = MPV) fL 6.7-11.0 CBC W/O [id number] 19:43:00* Test Item Value Reference Range Interpretation Comments WHITE BLOOD CELL (test code = WBC) 7.6 K/mm3 4.5-12.5 N RED BLOOD CELL (test code = RBC) 4.69 mill/mm3 3.7-5.2 N HEMOGLOBIN (test code = HGB) 13.3 gram/dL 11.5-15.5 N HEMATOCRIT (test code = HCT) 41.4 % 36.0-46.0 N MEAN CELL VOLUME (test code = MCV) 88.3 fL 80-98 N MEAN CELL HGB (test code = MCH) 28.4 picogram 27.0-33.0 N MEAN CELL HGB CONCETRATION (test code = MCHC) 32.1 gram/dL 33.0-36. 0 L RED CELL DISTRIBUTION WIDTH (test code = RDW) 13.9 % 11.6-16. 2 N PLATELET COUNT (test code = PLT) 292 K/mm3 150-450 N MEAN PLATELET VOLUME (test code = MPV) 10.4 fL 6.7-11.0 N
--- OUTSIDE RECORDS SUMMARY | 2020-01-21 08:40 | XMS REPORT ---
Author Author ERIC Obrien Organization Unknown Address Unknown Phone Care Team Providers Care Spring Up Supervisor Name Role Phone Sarah Obriena PP Reason for Referral No Reason for Referral was given. History of Present Illness No HPI available. Problems * Normal Routine History And Physical Adult (V70.0); (Active) * Irritable Bowel Syndrome (564.1); (Active) * Hypertension (401.9); (Active) * Diabetes Mellitus (250.00); (Active) * Hyperlipidemia (272.4); (Active) Medication * AmLODIPine Besylate 10 MG Oral Tablet; ONCE DAILY (Active) * Januvia 100 MG Oral Tablet; one daily (Active) * Losartan Potassium-HCTZ 100-12.5 MG Oral Tablet; 1/2 tablet at HS (Active) * Atenolol 50 MG Oral Tablet; 1/2 tab at HS (Active) * Lipitor 20 MG Oral Tablet; TAKE 1 TABLET DAILY. (Active) * BuPROPion HCl ER (XL) 300 MG Oral Tablet Extended Release 24 Hour; TAKE 1 TABLET DAILY DIRECTED. (Active) * MetFORMIN HCl 500 MG Oral Tablet; 2 tablets bid (Active) * Omeprazole 20 MG Oral Tablet Delayed Release; BID (Active) Allergies and Adverse Reactions * Lexapro TABS (Active) * Serzone TABS (Active) Past Medical History * History of Hiatal Hernia (553.3); (Resolved) * History of Esophageal Reflux (530.81); (Resolved) Procedures Procedure Procedure Date Date Completed Status Cholecystectomy - - Resolved Family History * Maternal history of Osteoporosis (V17.81); (Active) * Paternal history of Pancreatic Cancer Susceptibility (Active) Advance Directives * No Advance Directives available. Encounters * AUDIT 05/18/2013 * ECL, Provider: DIMITRI LOJA, Status: Pen, Time: 12:45 PM 05/19/2013
--- OUTSIDE RECORDS SUMMARY | 2020-01-21 08:40 | XMS REPORT ---
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 Encounters * AUDIT 11/24/2013 * ECL, Provider: MONALISA BURGESS, Status: Jeff, Time: 8:00 AM 12/05/2013
--- OUTSIDE RECORDS SUMMARY | 2020-01-21 08:40 | XMS REPORT ---
Author Author ERIC LOJA Organization Unknown Address Unknown Phone Care Team Providers Care Manager Department Name Role Phone PURVIBUCKDIMITRI PP Unavailable Reason for Referral No Reason [...] TABLET 3-4 TIMES DAILY NEEDED. (Active) * Penicillin V Potassium 500 MG Oral Tablet; TAKE 1 TABLET 3 TIMES DAILY.; Start Date: 05/19/2013; End Date: 05/29/2013 (Active) * MetFORMIN HCl 500 MG Oral Tablet; 2 tablets bid (Active) Allergies and Adverse Reactions * Lexapro [...] No Advance Directives available. Encounters * AUDIT 05/19/2013
--- NOTE | 2020-01-21 08:49 | Emergency Department Note ---
History of Present Illnes History of Present Illness History of Present Illness This is a 64 year old female arrived to the ED with left middle finger infection. Historian: Patient Arrival Mode: Car Onset (how long ago): day(s) Location: left 3rd digit Radiation: non-radiation Onset quality: gradual Duration (how long): day(s) Progression: worsening Relieving factors: none Exacerbating factors: none Associated symptoms: denies other symptoms Treatments prior to arrival: none Past Medical/Family History Physician Review I have reviewed the patient's past medical and family history. Any updates have been documented here. Past Medical History Recent Fever: No Clinical Suspicion of Infectio: Yes New/Unexplained Change in Ment: No Social History Any Illegal Drug Use: No TB Exposure/Symptoms: No Review of Systems Review of Systems Constitutional: no symptoms EENTM: no symptoms Cardiovascular: no symptoms Respiratory: no symptoms Gastrointestinal: no symptoms Genitourinary: no symptoms Musculoskeletal: no symptoms, other (finger infection ) Neurological: no symptoms Psychological: no symptoms Endocrine: no symptoms Hematological/Lymphatic: no symptoms Review of other systems All other systems reviewed and negative. Physical Exam Related Data Vital signs reviewed: Yes Physical Exam CONSTITUTIONAL Constitutional: well-developed, well-nourished HENT HENT: normocephalic, atraumatic, oropharynx clear/moist, nose normal HENT L/R: left ext ear normal, right ext ear normal EYES Eyes: PERRL, conjunctivae normal NECK Neck: ROM normal PULMONARY Pulmonary: effort normal, breath sounds normal CARDIOVASCULAR Cardiovascular: regular rhythm, heart sounds normal, capillary refill normal, normal rate GASTROINTESTINAL Abdominal: soft, nontender, bowel sounds normal GENITOURINARY Genitourinary: exam deferred SKIN Skin: warm, dry MUSCULOSKELETAL Musculoskeletal: ROM normal NEUROLOGICAL Neurological: alert, oriented x 3, no gross motor or sensory deficits PSYCHOLOGICAL Psychological: mood/affect normal, judgement normal Exam - additional comments left 3rd digit infection Critical Care Time Subsequent provider I assumed direction of critical care for this patient from another provider of my specialty. Assessment & Plan Assessment & Plan Final Impression: (1) Finger infection (2) Tenosynovitis Assessment & Plan -cbc, cmp, ekg -Pt was to go the OR today was wash out of his finger, however, had coumadin the night before- procedure post poned till Wednesday -Per Dr. Gita's request- pt discharged home with follow up Wednesday to the OR. HOWIE RAMSEY DO January 21, 2020 08:49
--- NOTE | 2020-01-21 09:53 | NUR ---
Blood specimens drawn and sent. Pt reports she has a-fib, and took her coumadin last night. Dr. Rincon notified. Orders placed for PT. She said she forgot to tell her surgeon.
[2020-01-21 09:54] LABS: BASOPHILS # (AUTO) 0.1 (0.0-0.1); BASOPHILS % 0.9 % (0.0-1.0); EOSINOPHILS # (AUTO) 0.2 (0.0-0.4); EOSINOPHILS % 1.6 % (0.0-6.0); HEMATOCRIT 38.5 % (34.2-44.1); HEMOGLOBIN 12.2 g/dL (12.0-16.0); LYMPHOCYTES # (AUTO) 1.9 (1.0-3.2); LYMPHOCYTES % 20.6 % (18.0-39.1); MEAN CORPUSCULAR HGB CONC 31.7 g/dL (31-35); MEAN CORPUSCULAR VOLUME 88.3 fL (81-99); MONOCYTES # (AUTO) 0.6 (0.2-0.8); MONOCYTES % 6.8 % (4.4-11.3); NEUTROPHILS # (AUTO) 6.5 (2.1-6.9); NEUTROPHILS % 69.4 % (38.7-80.0); PLATELET COUNT 349 x10e3/uL (140-360); RED BLOOD COUNT 4.36 x10e6/uL (3.6-5.1); RED CELL DISTRIBUTION WIDTH 14.5 % (11.7-14.4)
[2020-01-21] MEDS ORDERED: ACETAMINOPHEN 1000 MG/100 ML 0 ML IV ONE (10:08)
[2020-01-21] MEDS ORDERED: MUPIROCIN 2% OINT 22 GM TUBE ONE (10:14)
[2020-01-21] MEDS ORDERED: BACITRACIN 50,000 UNIT VIAL ONE (10:14)
[2020-01-21 10:26] LABS: ALANINE AMINOTRANSFERASE 18 IU/L (0-55); ALBUMIN 3.4 g/dL (3.5-5.0); ALBUMIN/GLOBULIN RATIO 0.8 (0.8-2.0); ALKALINE PHOSPHATASE 79 IU/L (40-150); ANION GAP 19.1 mmol/L (8-16); CALCIUM 9.4 mg/dL (8.4-10.2); CARBON DIOXIDE 21 mmol/L (22-29); CHLORIDE 104 mmol/L (98-107); CREATININE, SERUM 0.71 mg/dL (0.57-1.11); EST GLOMERULAR FILTRATION RATE > 60 ML/MIN (60-); GLUCOSE 145 mg/dL (74-118); POTASSIUM 4.1 mmol/L (3.5-5.1); SODIUM 140 mmol/L (136-145)
[2020-01-21 10:53] LABS: INR 1.54; PROTHROMBIN TIME 19.5 seconds (11.9-14.5)
--- NOTE | 2020-01-21 11:00 | NUR ---
Pts surgery is now cancelled and will be discharged to home. Pt will have surgery on Wednesday. PIV dc'd cath intact.
[2020-01-21 11:31] VITALS: BP 144/89
[2020-01-21 12:17] LABS: BLOOD UREA NITROGEN 42 mg/dL (7-26); BUN/CREATININE RATIO 59 (6-25)
[2020-01-23] MEDS ORDERED: LOSARTAN POTASS25 MG (10:24)
[2020-01-23] MEDS ORDERED: METFORMIN HCL500 MG PO (10:25)
[2020-01-23] MEDS ORDERED: METOPROLOL SUCC50 MG PO (10:25)
[2020-01-23] MEDS ORDERED: JANUVIA100 MG PO (10:26)
[2020-01-23] MEDS ORDERED: WARFARIN SODIUM2 MG PO (10:27)
[2020-01-23] MEDS ORDERED: BUPROPION HCL100 MG PO (10:27)
[2020-01-23] MEDS ORDERED: ASPIRIN81 MG (10:28)
[2020-01-23] MEDS ORDERED: GABAPENTIN300 MG PO (10:28)
[2020-01-23] MEDS ORDERED: GABAPENTIN100 MG (10:29)
== END 2020-01-21 11:48 | disposition home or self-care (01) ==
LOC: ER 08:38
DX: L08.9 Local infection of the skin and subcutaneous tissue, unspecified (principal); M65.88 Other synovitis and tenosynovitis, other site
CPT/HCPCS: 36415; 80053; 85025; 85610; 86850; 86900; 87635; 93005; 99284

== ENCOUNTER → 2020-01-23 | Day surgery (SDC) | payer MEDICARE, OTHER ==
[~2020-01-23] MED LIST: ASPIRIN81 MG; BACITRACIN 50,000 UNIT VIAL ONE; BUPIVACAINE HCL 0.5% INJ 30 ML VIAL INJ ONE; BUPROPION HCL100 MG PO; CEFAZOLIN SOD 1 GM/NS 50ML 50 ML IV ONE; DEXAMETHASONE SOD PHOS INJ 4 MG/ML VIAL ONE; GABAPENTIN100 MG; GABAPENTIN300 MG PO; JANUVIA100 MG PO; LIDOCAINE HCL 2% LOCAL INJ 5 ML SDV VIAL INJ ONE; LOSARTAN POTASS25 MG; METFORMIN HCL500 MG PO; METOCLOPRAMIDE HCL 10 MG/2ML VIAL ONE; METOPROLOL SUCC50 MG PO; MUPIROCIN 2% OINT 22 GM TUBE ONE; ONDANSETRON HCL INJ 2MG/ML 2ML 2 MG/ML VIAL ONE; PROPOFOL IV EMULSION 10 MG/ML 20 ML VIAL ONE; ROCURONIUM BROMIDE 10 MG/ML 5ML VIAL IV ONE; SCOPOLAMINE 1.5 MG PATCH ONE; SEVOFLURANE INHAL SOLN 250 ML PEN BTL ONE; SUCCINYLCHOLINE CHLORIDE 20 MG/ML 10ML VIAL ONE; WARFARIN SODIUM2 MG PO
[2020-01-23 10:45] LABS: INR 1.05; PROTHROMBIN TIME 14.3 seconds (11.9-14.5)
[2020-01-23 10:46] LABS: PARTIAL THROMBOPLASTIN TIME 29.9 seconds (23.8-35.5)
--- NOTE | 2020-01-23 11:21 | Diagnostic Imaging Report ---
X-ray chest PA and lateral History: Preop Comparison: None Findings: Central airways unremarkable. Heart size normal. Mediastinal silhouettes unremarkable. No pleural effusion. No pneumothorax. A small 6 mm calcified nodule likely a granuloma in the left lower lung. No other focal lung disease. Degenerative changes of the spine. Upper abdomen unremarkable. Impression: No significant cardiopulmonary disease on this exam. Signed by: Sy Steward MD on 01/23/2020 11:18 AM
[2020-01-23 12:15] VITALS: BP 112/80
--- NOTE | 2020-01-23 14:31 | Operative Report ---
DATE OF PROCEDURE: 01/23/2020 SURGEON: Sohail Pelayo MD PREOPERATIVE DIAGNOSIS: Flexor tenosynovitis, presumed purulent. POSTOPERATIVE DIAGNOSIS: Purulent flexor tenosynovitis, left long finger. PROCEDURE: Drainage of left long finger flexor tendon sheath and flexor tenosynovectomy. ANESTHESIA: General. HISTORY: The patient is a 64-year-old right-hand dominant female, who has approximately a 2-week history of progressive swelling and pain of the left long finger without antecedent history of laceration or puncture wound. She was treated by her primary care physician for approximately one week on oral antibiotics with no success. The patient was then transferred to my service several days ago. MRI shows fluid within the flexor tendon sheath extending from the A1 kori to the level of the PIP joint. The risks, benefits, and alternatives of treatment were discussed with the patient and the family. They are prepared to undergo the procedure as outlined. PROCEDURE IN DETAIL: The patient was marked preoperatively in the holding area. She was brought to the operating theater and after the induction of adequate general anesthesia, she was prepped and draped in a supine position and a time-out was performed. The left upper extremity was elevated for 5 minutes and then a tourniquet inflated to a pressure of 250 mmHg. A volar Lilian zigzag incision was marked out over the MP joint of the left long finger and carried on to the volar aspect of the finger to the level of the PIP joint. The incision was made in the palm through the skin and subcutaneous tissue. Venous tributaries were controlled with bipolar cautery. The incision was deepened down to the A1 kori, which was noted to be markedly thickened. The A1 kori was incised, then seropurulent fluid was encountered within the tendon sheath. This was cultured both aerobically and anaerobically. At this point, the incision in the skin and subcutaneous tissues was carried down to the level of the PIP joint. Blunt dissection was used to elevate the volar flap. Care was taken to ensure that the neurovascular bundles were identified and protected and preserved. Once the flap was elevated, the A3 kori was then incised and a more seropurulent fluid was encountered. The A2 kori was left intact. Copious irrigation of the flexor tendon sheath was then carried out using antibiotic solution until the effluent was finally clear. At this point, quarter-inch packing was placed within the flexor tendon sheath and the wound was then closed loosely with 5-0 nylon sutures in an interrupted fashion. A Marcaine field block was performed at the operative site. Bactroban ointment and Xeroform gauze were placed onto the incision. Sterile bulky dressings were applied. The tourniquet was deflated. All the fingers pinked up nicely. The patient was then returned to recovery room in satisfactory condition and discharged with a postoperative instruction sheet as well as a followup appointment. MD ANDERSON Montalvo/ARSH /[id number]
== END | disposition home or self-care (01) ==
LOC: OR 09:25
PROVIDERS: ATTEND Plastic Surgery
DX: M65.842 Other synovitis and tenosynovitis, left hand (principal); I10 Essential (primary) hypertension; I48.91 Unspecified atrial fibrillation; E11.9 Type 2 diabetes mellitus without complications; I49.3 Ventricular premature depolarization; K44.9 Diaphragmatic hernia without obstruction or gangrene; K21.9 Gastro-esophageal reflux disease without esophagitis; F41.9 Anxiety disorder, unspecified; Z79.01 Long term (current) use of anticoagulants; Z79.84 Long term (current) use of oral hypoglycemic drugs; Z79.82 Long term (current) use of aspirin; Z87.01 Personal history of pneumonia (recurrent)
CPT/HCPCS: 26020; 26145; 36415; 71046; 82948; 85610; 85730; 87071; 87075; 87205; 88305; 93005; J0330; J0690; J1100; J2001; J2405; J2704; J2765

== ENCOUNTER → 2020-02-27 | Outpatient (RCR) | payer MEDICARE, OTHER ==
[~2020-02-27] MED LIST changes: -BACITRACIN 50,000 UNIT VIAL ONE; -BUPIVACAINE HCL 0.5% INJ 30 ML VIAL INJ ONE; -CEFAZOLIN SOD 1 GM/NS 50ML 50 ML IV ONE; -DEXAMETHASONE SOD PHOS INJ 4 MG/ML VIAL ONE; -LIDOCAINE HCL 2% LOCAL INJ 5 ML SDV VIAL INJ ONE; -METOCLOPRAMIDE HCL 10 MG/2ML VIAL ONE; -MUPIROCIN 2% OINT 22 GM TUBE ONE; -ONDANSETRON HCL INJ 2MG/ML 2ML 2 MG/ML VIAL ONE; -PROPOFOL IV EMULSION 10 MG/ML 20 ML VIAL ONE; -ROCURONIUM BROMIDE 10 MG/ML 5ML VIAL IV ONE; -SCOPOLAMINE 1.5 MG PATCH ONE; -SEVOFLURANE INHAL SOLN 250 ML PEN BTL ONE; -SUCCINYLCHOLINE CHLORIDE 20 MG/ML 10ML VIAL ONE
== END ==
LOC: OT 02-13 10:36
PROVIDERS: ATTEND Plastic Surgery
DX: M65.842 Other synovitis and tenosynovitis, left hand (principal); M25.642 Stiffness of left hand, not elsewhere classified; M79.642 Pain in left hand; M25.442 Effusion, left hand; R53.1 Weakness
CPT/HCPCS: 97010; 97022 ×2; 97035 ×3; 97110; 97140 ×3; 97165; G0283

== ENCOUNTER 2020-03-13 13:00 | Outpatient (RCR) | payer MEDICARE, OTHER | END 2020-03-29 | LOC: OT 13:00 | PROVIDERS: ATTEND Plastic Surgery | DX: M65.88 Other synovitis and tenosynovitis, other site (principal) ==